=== PATIENT | female | born 1985 | race Caucasian/White ===

== ENCOUNTER 2017-09-21 08:17 | Day surgery (SDC) | payer BC ==
[~2017-09-21 08:17] MED LIST: Buffered Lidocaine 0.9% SYRIN* 5 ML/SYR SYRINGE INTRADERM ONE; Dexamethasone IV* 4 MG/ML 1 ML (4 MG) IV SLOW PU ONE; Famotidine IV* 10 MG/ML 2 ML (20 mg) IV ONE
[2017-09-21] MEDS ORDERED: Famotidine IV* 10 MG/ML 2 ML (20 mg) ONE (08:26)
[2017-09-21] MEDS ORDERED: ceFAZolin 2 GM PREMIX (*) 2 GM/50 ML BAG IVPB ONE (08:26)
[2017-09-21] MEDS ORDERED: Dexamethasone IV* 4 MG/ML 1 ML (4 MG) ONE (08:26)
[2017-09-21] MEDS ORDERED: Buffered Lidocaine 0.9% SYRIN* 5 ML/SYR SYRINGE ONE (08:27)
[2017-09-21] MEDS ORDERED: Methylene Blue 0.5 %* 50 MG/10 ML AMP IV ONE (09:50)
[2017-09-21] MEDS ORDERED: Bupivacaine 0.25% SDV* 30 ML ONE (09:50)
[2017-09-21] MEDS ORDERED: Bupivacaine 0.5% SDV PF* 10-30ML VIAL ONE (09:51)
[2017-09-21] MEDS ORDERED: fentaNYL* 50 MCG/ML 2 ML VIAL (100 MCG VIAL) IV PRN (10:05)
[2017-09-21] MEDS ORDERED: HYDROcodone/ACETAMIN 5-325 MG* 1 TAB PO PRN (10:05)
[2017-09-21] MEDS ORDERED: oxyCODONE/Acetamin 5/325 MG* TAB PO PRN ×2 (10:05→11:40)
[2017-09-21] MEDS ORDERED: PROCHLORPERAZINE INJ 5 MG/ML 2 ML VIAL IV PRN (10:05)
[2017-09-21] MEDS ORDERED: DiMENhydriNATE IV* 50 MG/ML VIAL IV PUSH PRN (10:05)
[2017-09-21] MEDS ORDERED: Naloxone* 0.4 MG/ML 1 ML VIAL IV PRN (10:05)
[2017-09-21] MEDS ORDERED: Midazolam* 1 MG/ML 2 ML VIAL (2 MG) ONE (10:10)
[2017-09-21] MEDS ORDERED: fentaNYL* 50 MCG/ML 2 ML VIAL (100 MCG VIAL) ONE ×3 (10:10→12:06)
[2017-09-21] MEDS ORDERED: Lidocaine 2% PF * 5 ML VIAL ONE (10:10)
[2017-09-21] MEDS ORDERED: Propofol* 10 MG/ML 20 ML BTL IV PUSH ONE (10:10)
[2017-09-21] MEDS ORDERED: Mivacurium Chloride* 20 MG/10 ML VIAL IV ONE (10:10)
[2017-09-21] MEDS ORDERED: Ketorolac INJ* 30 MG/ML 1 ML VIAL ONE (10:40)
[2017-09-21] MEDS ORDERED: Ondansetron INJ* 2 MG/ML VIAL ONE (10:56)
[2017-09-21] MEDS ORDERED: Ibuprofen TAB* 600 MG PO PRN (11:39)
[2017-09-21] MEDS ORDERED: HYDROcodone/ACETAMIN 5-325 MG* 1 TAB ONE (11:52)
[2017-09-21] MEDS ORDERED: PROCHLORPERAZINE INJ 5 MG/ML 2 ML VIAL ONE (12:02)
[2017-09-21] MEDS ORDERED: EPHEDrine (Pressors)* 50 MG/ML VIAL ONE (12:38)
[2017-09-21] MEDS ORDERED: oxyCODONE/Acetamin 5/325 MG* TAB ONE (13:05)
[2017-09-21 14:55] VITALS: BP 107/60
--- NOTE | 2017-09-21 22:44 | OP ---
CC: Dr. Gallegos; OB-ENROLLMENT SERVICES VICE PRESIDENT [facility] * DATE OF OPERATION: 09/21/17 - [facility] DATE OF : 85 SURGEONS: Dr. Mcintyre and Dr. Gallegos. Dr. Mcintyre, dilation of the cervix, hysteroscopy and chromotubation. Dr. Gallegos, laparoscopy. ANESTHESIOLOGIST: Dr. Benites. ANESTHESIA: General endotracheal anesthesia. PRE-OP DIAGNOSES: Cervical stenosis, infertility. POST-OP DIAGNOSES: Cervical stenosis, infertility. OPERATIVE PROCEDURE: Dilation of the cervix, hysteroscopy, diagnostic laparoscopy, chromotubation. ESTIMATED BLOOD LOSS: Minimal, less than 20 cc. SPECIMENS: None. FLUIDS: Per Anesthesia. DRAINS: None. FINDINGS: Midline stenotic cervix, small anteverted uterus, normal-appearing ovaries bilaterally, normal-appearing fallopian tubes bilaterally, both fallopian tubes were patent and spilled the dye under direct visualization. No endometriosis was seen. Normal-appearing endometrium. No septum. No polyps seen. Sponge, lap, and needle counts were correct x2 and the patient was brought to recovery room, awake and in stable condition. DESCRIPTION OF PROCEDURE: The patient was brought to the operating room. When general anesthesia was found to be adequate, the patient was prepped and draped in the usual sterile fashion in the dorsal lithotomy position. A time-out was performed. Exam under anesthesia was performed. Weighted speculum was placed in the vagina. The anterior lip of the cervix was grasped with a single-tooth tenaculum. The cervix was gently dilated initially with lacrimal dilators and then graduated up to Hegar dilators. A 10-mm skin incision was made in the infraumbilical fold. The fascia was identified and entered. The 5-mm trocar and sleeve were advanced. The laparoscope was advanced and the peritoneum was insufflated. The uterus appeared normal. Both ovaries were visualized and appeared normal. The HSG catheter was advanced through the cervix. The methylene blue dye was instilled and under direct visualization, both fallopian tubes were visualized and the blue dye was seen spilling from both tubes. In order to better visualize the fimbria on both ends and confirmed both tubes were patent, a 5-mm trocar and sleeve were advanced approximately 2-cm above the symphysis pubis. After the chromotubation was completed, the 5-mm trocar was removed under direct visualization. The laparoscope was removed and Dr. Gallegos closed the umbilical incision site and both skin sites. The cervix was dilated up to a size 8 Hegar dilator. The hysteroscope was introduced and the endometrium appeared uniform throughout. There were no septums. There were no polyps. Both tubal ostia were visualized and the hysteroscope was removed. The single-tooth tenaculum was removed from the anterior lip of the cervix. Excellent hemostasis was noted. All instruments were removed from the vagina and the patient was brought to recovery room awake and in stable condition. [id number]/[facility] #: [id number] [facility]ITAL[facility]
--- NOTE | 2017-09-21 23:18 | OP ---
CC: Angela Mcintyre MD OPERATIVE REPORT: DATE OF PROCEDURE: 09/21/17 DATE OF : 85 SURGEON: Bienvenido Gallegos MD CO-SURGEON: Dr. Mcintyre. ANESTHESIOLOGIST: Dr. Benites. ANESTHESIA: General endotracheal. PRE-OP DIAGNOSES: Cervical stenosis and infertility. POST-OP DIAGNOSES: Cervical stenosis and infertility. OPERATIVE PROCEDURE: Diagnostic laparoscopy. ESTIMATED BLOOD LOSS: Minimal. IV FLUIDS: Crystalloid. SPECIMEN: None. DRAINS: None. COMPLICATIONS: None. COUNTS: Instrument, needle, and sponge counts were correct. DESCRIPTION OF PROCEDURE: The patient was brought to the operating room and placed on the table in lithotomy. She had antibiotics administered. She was positioned and padded appropriately and she was prepped and draped in the usual sterile fashion and the time-out was performed. A transumbilical vertical incision was created using open technique and a 5-mm optical trocar was inserted into the abdominal cavity and carbon-dioxide was insufflated to a pressure of 15 mmHg. Under direct visualization, 5-mm instrument was placed in the suprapubic region. Inspection of the abdominal cavity revealed normal appearing liver, stomach and intestines grossly, with no adhesions. The bilateral adnexa were inspected and visualization of each tube was provided as Dr. Mcintyre performed her procedures. Those procedures are dictated in a separate note. At the conclusion of the procedure, the instrumentation was removed, carbon-dioxide was released and the skin incisions were closed with 4-0 Vicryl in subcuticular fashion and DermaFlex was applied to each wound. The patient tolerated the procedure well, was extubated and transferred to Recovery in stable condition. [id number]/[facility] #: [id number] [facility] SYSTEMJuan
== END 2017-09-21 14:56 | disposition home or self-care (01) ==
LOC: OR 08:17
PROVIDERS: ATTEND Obstetrics & Gynecology
DX: N88.2 Stricture and stenosis of cervix uteri (principal); N97.9 Female infertility, unspecified
CPT/HCPCS: 81025; A9270-GY; J0690; J0780; J1100; J1885; J2250; J2405; J2704; J3010

== ENCOUNTER 2022-01-22 13:27 | Inpatient (IN) ==
[2022-01-22] MEDS ORDERED: Lactated Ringers 1000 ml BAG 1,000 ML IV ONE ×2 (14:02→20:27)
[2022-01-22 14:48] LABS: Urine Benzodiazepine Screen None Detected (None Detect); Urine Cannabinoids Screen None Detected (None Detect); Urine Opiates Screen None Detected (None Detect)
[2022-01-22] MEDS ORDERED: Buffered Lidocaine 1% SYRIN 1 ml INTRADERM ONE (15:22)
[2022-01-22 15:48] LABS: ABS Basophils 0.1 10^3/ul (0-0.2); ABS Lymphocytes 0.8 10^3/ul (1.0-4.8); ABS Monocytes 0.6 10^3/ul (0-0.8); ABS Neutrophils 11.1 10^3/ul (1.5-7.7); Eosinophil % 0.1 %; Hematocrit 40 % (35-47); Hemoglobin 13.5 g/dL (12.0-16.0); Lymphocyte % 6.5 %; Mean Corpuscular HGB Conc 34 g/dL (31-36); Mean Corpuscular Hemoglobin 31 pg (27-31); Mean Corpuscular Volume 92 fL (80-97); Mean Platelet Volume 10.2 fL (7.4-10.4); Nucleated Red Blood Cells % 0.1; Platelet Count 181 10^3/uL (150-450); Red Blood Count 4.33 10^6 /uL (3.70-4.87); Red Cell Distribution Width 14 % (10-15); White Blood Count 12.6 10^3/uL (3.5-10.8)
[2022-01-22] MEDS ORDERED: OBEPIDURAL (200 ML) 200 ML EPIDURAL ONE (19:38)
[2022-01-22] MEDS: Lactated Ringers 1000 ml BAG 1,000 ML IV SCH ×2 (20:03→20:41)
[2022-01-22] MEDS ORDERED: Sodium Citrate/Citric Acid LIQ 15 ML UDC PO PRN (20:27)
[2022-01-22] MEDS ORDERED: Lactated Ringers 1000 ml BAG 500 ML IV PRN ×2 (20:27)
[2022-01-22] MEDS ORDERED: Phenylephrine 40 mcg/mL 10mL (400mcg) SYRINGE IV PUSH PRN ×2 (20:27)
[2022-01-22] MEDS ORDERED: OBEPIDURAL (200 ML) 200 ML EPIDURAL SCH (21:00)
[2022-01-22] MEDS ORDERED: Lactated Ringers 1000 ml BAG 1,000 ML IV SCH ×2 (21:00)
[2022-01-22] MEDS ORDERED: Oxytocin in LR 20 UNITS/1,000 ML BAG IVPB SCH (21:00)
[2022-01-22 21:02] LABS: Urine Appearance Clear; Urine Bilirubin Negative (Negative); Urine Blood Negative (Negative); Urine Color Yellow; Urine Glucose Negative (Negative); Urine Ketones 2+ (Negative); Urine Nitrite Negative (Negative); Urine Protein Negative (Negative); Urine Specific Gravity 1.006 (1.002-1.030); Urine Urobilinogen Negative (Negative)
[2022-01-23] MEDS ORDERED: Lidocaine 1% MPF 5 ML VIAL ONE ×3 (06:02→11:27)
[2022-01-23] MEDS ORDERED: fentaNYL 100 mcg/2 ml 50 MCG/ML VIAL ONE (06:16)
[2022-01-23] MEDS ORDERED: Chloroprocaine 3% 20 ml VIAL ONE (06:24)
[2022-01-23] MEDS ORDERED: Dibucaine 1% OINT 28.35 GM TUBE PR PRN (06:43)
[2022-01-23] MEDS ORDERED: Glycerin ADULT 2.4 gm SUPP PR PRN (06:43)
[2022-01-23] MEDS ORDERED: Methylergonovine 0.2 mg AMPULE 1 ml AMP IM ONE (06:43)
[2022-01-23] MEDS ORDERED: Witch Hazel PAD JAR TOPICAL PRN (06:43)
[2022-01-23] MEDS ORDERED: ceFOXitin 2 GM IVPREMIX 2 GM/50 ML BAG IVPB ONE (06:47)
[2022-01-23] MEDS ORDERED: Oxytocin in LR 20 UNITS/1,000 ML BAG IVPB SCH (07:00)
[2022-01-23] MEDS ORDERED: Lactated Ringers 1000 ml BAG 1,000 ML IV SCH (07:00)
[2022-01-24 06:46] LABS: ABS Basophils 0.1 10^3/ul (0-0.2); ABS Eosinophils 0.2 10^3/ul (0-0.6); ABS Lymphocytes 1.2 10^3/ul (1.0-4.8); ABS Neutrophils 9.4 10^3/ul (1.5-7.7); Eosinophil % 1.4 %; Hematocrit 32 % (35-47); Lymphocyte % 10.4 %; Mean Corpuscular HGB Conc 35 g/dL (31-36); Mean Corpuscular Hemoglobin 32 pg (27-31); Mean Corpuscular Volume 93 fL (80-97); Mean Platelet Volume 9.7 fL (7.4-10.4); Platelet Count 136 10^3/uL (150-450); Red Cell Distribution Width 14 % (10-15); White Blood Count 11.8 10^3/uL (3.5-10.8)
[2022-01-25 07:36] VITALS: BP 118/68
== END 2022-01-25 12:40 | disposition home or self-care (01) | DRG 541 ==
LOC: MCHOB 13:57
PROVIDERS: ADMIT Midwife; ATTEND Midwife

== ENCOUNTER 2024-08-25 10:11 | Inpatient (IN) ==
[2024-08-25] MEDS: miSOPROStol 100 mcg TAB VAGINAL ONE (11:45)
[2024-08-25 13:13] LABS: Urine Benzodiazepine Screen None Detected (None Detect); Urine Cannabinoids Screen None Detected (None Detect); Urine Opiates Screen None Detected (None Detect)
[2024-08-25 17:05] LABS: ABS Eosinophils 0.1 10^3/uL (0.0-0.5); ABS Lymphocytes 0.9 10^3/uL (1.0-4.8); ABS Monocytes 0.8 10^3/uL (0.0-0.9); ABS Neutrophils 7.3 10^3/uL (1.5-7.6); ABS Nucleated RBC 0.01 10^3/ul; Eosinophil % 1.1 %; Hemoglobin 14.8 g/dL (11.5-14.3); Lymphocyte % 10.1 %; Mean Corpuscular Hemoglobin 33.8 pg (27-33); Mean Corpuscular Hgb Conc 34.4 g/dL (31-36); Mean Corpuscular Volume 98.3 fL (80-97); Mean Platelet Volume 9.9 fL (7.5-11.2); Nucleated Red Blood Cells % 0.1 %/100WBC (0.0-0.8); Platelet Count 172 10^3/uL (150-450); Red Blood Count 4.38 10^6/uL (3.63-4.92); Red Cell Distribution Width 14.9 % (12-17); White Blood Count 9.1 10^3/uL (3.8-11.8)
[2024-08-25] MEDS: Lactated Ringers 1000 ml BAG 1,000 ML IV ONE (17:14)
[2024-08-25] MEDS: Oxytocin in LR 20,000 MILLI.UNIT/1,000 ML BAG IV SCH (17:14)
[2024-08-25] MEDS: OBEPIDURAL (200 ML) 200 ML EPIDURAL ONE (20:05)
[2024-08-25] MEDS: Lactated Ringers 1000 ml BAG 1,000 ML IV SCH (20:11)
[2024-08-25] MEDS ORDERED: Phenylephrine 40 mcg/mL 10mL (400mcg) SYRINGE IV PUSH PRN ×2 (20:13)
[2024-08-25] MEDS ORDERED: Sodium Citrate/Citric Acid LIQ 15 ML UDC PO PRN (20:13)
[2024-08-25 21:47] LABS: Urine Appearance Clear; Urine Bilirubin Negative (Negative); Urine Blood Trace (Negative); Urine Color Light-Yellow; Urine Glucose Negative (Negative); Urine Ketones Negative (Negative); Urine Nitrite Negative (Negative); Urine Protein Negative (Negative); Urine Urobilinogen Negative (Negative)
[2024-08-25 21:49] LABS: Urine Bacteria Absent /HPF (Absent); Urine Red Blood Cell Trace(0-2/hpf) /HPF (0-Trace); Urine Squamous Epithelial Cell Present /HPF (Absent); Urine White Blood Cell Trace(0-5/hpf) /HPF (0-Trace)
[2024-08-25] MEDS: Calcium Carb (TUMS) 500 mg CHEW TAB PO PRN (21:57)
[2024-08-25] MEDS: Lidocaine 1% VIAL 10 MG/ML 30 ML VIAL INJ PRN (23:15)
[2024-08-26] MEDS ORDERED: Glycerin ADULT 2.4 gm SUPP PR PRN (00:13)
[2024-08-26] MEDS: fentaNYL 100 mcg/2 ml 50 MCG/ML VIAL ONE (00:27)
[2024-08-26] MEDS: Witch Hazel PAD JAR TOPICAL PRN (00:43)
[2024-08-26] MEDS: Dibucaine 1% OINT 28.35 GM TUBE PR PRN (00:43)
[2024-08-26] MEDS: ceFAZolin 2 GM PREMIX 2 GM/50 ML BAG IV ONE (00:43)
[2024-08-26] MEDS ORDERED: Lactated Ringers 1000 ml BAG 1,000 ML IV SCH (01:00)
[2024-08-26 06:52] LABS: ABS Eosinophils 0.1 10^3/uL (0.0-0.5); ABS Lymphocytes 0.8 10^3/uL (1.0-4.8); ABS Monocytes 1.2 10^3/uL (0.0-0.9); ABS Neutrophils 12.4 10^3/uL (1.5-7.6); Eosinophil % 0.4 %; Hematocrit 36.5 % (35-45); Hemoglobin 12.8 g/dL (11.5-14.3); Lymphocyte % 5.2 %; Mean Corpuscular Hemoglobin 33.8 pg (27-33); Mean Corpuscular Volume 96.4 fL (80-97); Mean Platelet Volume 9.7 fL (7.5-11.2); Platelet Count 148 10^3/uL (150-450); Red Blood Count 3.79 10^6/uL (3.63-4.92); Red Cell Distribution Width 14.9 % (12-17); White Blood Count 14.5 10^3/uL (3.8-11.8)
[2024-08-26] MEDS: OBEPIDURAL (200 ML) 200 ML EPIDURAL SCH (19:03)
[2024-08-26] MEDS: Buffered Lidocaine 1% SYRIN 1 ml INTRADERM ONE (19:03)
[2024-08-26] MEDS: Lactated Ringers 1000 ml BAG 1,000 ML IV ONE (19:03)
[2024-08-26] MEDS: Lactated Ringers 1000 ml BAG 1,000 ML IV SCH (19:03)
[2024-08-26] MEDS: Phenylephrine 40 mcg/mL 10mL (400mcg) SYRINGE ONE (19:41)
[2024-08-26] MEDS: Lidocaine 1.5% EPI 1:200,000 30 ML SDV ONE (19:41)
[2024-08-26] MEDS: Oxytocin in LR 20,000 MILLI.UNIT/1,000 ML BAG IV SCH (19:41)
[2024-08-27 09:00] VITALS: BP 107/69
== END 2024-08-27 11:52 | disposition home or self-care (01) | DRG 541 ==
LOC: MCHOBOUT 10:11 → MCHOB 11:09
PROVIDERS: ADMIT Midwife; ATTEND Midwife